=== PATIENT | female | born 1950 | race Two or more races ===

== ENCOUNTER 2017-08-07 07:45 | Inpatient (IN) | payer OTHER ==
[~2017-08-07] VITALS: Ht 162.6 cm; Wt 72.6 kg
[2017-08-07] MEDS ORDERED: RANITIDINE HCL150 M1 PO (10:35)
[2017-08-07] MEDS ORDERED: NEFEDIPINE PO (10:35)
[2017-08-07] MEDS ORDERED: HYDROCHLOROTHIA25 MG PO (10:36)
[2017-08-07] MEDS ORDERED: GLIMEPIRIDE4 MG PO (10:36)
[2017-08-07] MEDS ORDERED: SIMVASTATIN20 MG PO (10:36)
[2017-08-07] MEDS ORDERED: FORTAMET1000 MG PO (10:36)
[2017-08-07] MEDS ORDERED: NEURONTIN800 MG PO (10:37)
[2017-08-07] MEDS ORDERED: METFORMIN HCL500 MG PO (10:37)
[2017-08-15] MEDS ORDERED: OXYC1TAB9 PO (08:33)
[2017-08-15] MEDS ORDERED: XARELTO10 MG PO (08:33)
[2017-08-15] MEDS ORDERED: INTEGRA PLUS C1 EACH PO (08:33)
== END 2017-08-15 15:03 | DRG 470 ==
LOC: O/R 08-12 05:25 → SURH 08-12 05:25
PROVIDERS: Orthopaedic Surgery Sports Medicine
PROC: 0SRD0J9 Replacement of Left Knee Joint with Synthetic Substitute, Cemented, Open Approach (ICD-10-PCS; principal; 2017-08-12 09:00)
DX: M17.12 Unilateral primary osteoarthritis, left knee (principal); E11.9 Type 2 diabetes mellitus without complications; E78.4 Other hyperlipidemia; I11.9 Hypertensive heart disease without heart failure

== ENCOUNTER 2018-04-16 13:57 | Outpatient (CLI) | payer OTHER ==
[~2018-04-16 13:57] MED LIST: FORTAMET1000 MG PO; GLIMEPIRIDE4 MG PO; HYDROCHLOROTHIA25 MG PO; INTEGRA PLUS C1 EACH PO; METFORMIN HCL500 MG PO; NEFEDIPINE PO; NEURONTIN800 MG PO; OXYC1TAB9 PO; RANITIDINE HCL150 M1 PO; SIMVASTATIN20 MG PO; XARELTO10 MG PO
== END 2018-04-16 14:00 | disposition home or self-care (01) ==
LOC: RAD 13:57
DX: M25.562 Pain in left knee (principal)

== ENCOUNTER 2018-04-18 14:10 | Outpatient (CLI) | payer OTHER | END 2018-04-18 14:19 | disposition home or self-care (01) | LOC: RAD 501 14:10 | DX: Z96.653 Presence of artificial knee joint, bilateral (principal); M25.562 Pain in left knee ==